=== PATIENT | male | born 1975 | race Two or more races ===

== ENCOUNTER → 2024-09-21 | Outpatient (CLI) | payer OTHER, SELFPAY ==
--- NOTE | 2024-09-21 14:50 | XR_ITS ---
Examination: Wrist, right 3 views Technique: Wrist AP, oblique, lateral 3 views Date and time of exam: September 21, 2024 1453 hours INDICATIONS: Right wrist pain for years FINDINGS: Mild narrowing radiocarpal joint No acute fracture Old fracture base fifth metacarpal No erosive or other significant arthritic change IMPRESSION: No fracture No erosive or other significant arthritic change
== END | disposition home or self-care (01) ==
LOC: CDIM 14:41
PROVIDERS: Referring Provider Orthopaedic Surgery; Visit Provider Orthopaedic Surgery
DX: M25.531 Pain in right wrist (principal); S63.501S Unspecified sprain of right wrist, sequela; X58.XXXS Exposure to other specified factors, sequela
CPT/HCPCS: 73110